=== PATIENT | female | born 1980 | race Two or more races ===

== ENCOUNTER 2024-10-21 11:03 | Outpatient (RCR) | payer MEDICAID, SELFPAY ==
--- NOTE | 2024-10-21 11:19 | PT.OIERPT ---
PT OP Initial Eval Patient Information Outpatient Physical Therapy Treatment Date: 10/21/24 Visit Reasons: RIGHT WRIST PAIN Medical Diagnosis: [id number] M25.531 Treatment Dx #1: R wrist pain Start of Care: 10/21/24 Date of Onset: 2 months ago Smoking Status Smoking Status: Never smoker Initial Assessment Subjective: Pt is 44 yr old macanese speaking female who reports R wrist pain x2 months. She drops things like cooking pots and pans and feels like she has less strength. 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 She is wearing a brace that helps with the pain. The pain runs from the wrist up the arm. She tried working with the pain but it swelled up and pain didn't allow her to work. PMH: none reported Imaging: Xrays with provider Pt goal: to get rid of the pain Objective: L: 45 lbs, R: 20 lbs thumb ArOM Flexion: full Extension: 48 deg Wrist AROM: Flexion: full with pain Extension: 45 deg Dequervains: positive TTP: high of APL tendon, 1st CMC joint and DIP Assessment: Pt presents with high tissue irritability of wrist tendons consistent with Dequervains tenosynovitis. The R thumb seems to have the extensor tendon that moves when she flexes and extends it that causes pain, unclear what that is and may benefit from consultation with hand surgeon about that. Pt may benefit from skilled therapy to meet goals and has fair rehab potential. 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 ind with HEP 2. Improved R hand family specialist strength to at least 30 lbs 3. Decreased TTP of APL and EPB tendons from high to min 4. Pt will carry pots and pans without dropping in order to cook for 20 mins Treatment Plan 1. Manual therapy ? 2. Therex ? 3. Modalities as indicated, moist heat, ice, estim ? Frequency and Duration: 1-2x a week for 8 sessions plus evaluation Certification Dates: 10/21/24 to 01/19/25 Procedure Charges OP PT Eval Mod Complex 30 minutes: Yes
== END 2024-10-25 23:59 | disposition home or self-care (01) ==
LOC: CPTX 11:03
PROVIDERS: PCP Family Medicine; Referring Provider Family Medicine; Visit Provider Family Medicine
DX: M25.531 Pain in right wrist (principal); S66.911D Strain of unspecified muscle, fascia and tendon at wrist and hand level, right hand, subsequent encounter; X58.XXXD Exposure to other specified factors, subsequent encounter
CPT/HCPCS: 97162

== ENCOUNTER 2024-11-10 15:30 | Outpatient (RCR) | payer MEDICAID, SELFPAY ==
--- NOTE | 2024-10-28 14:08 | PT.ODAYNRPT ---
PT Outpatient Daily Note OP Daily Note Outpatient Physical Therapy Treatment Date: 10/28/24 Visit Reasons: right wrist pain Subjective: Pt reports pain of carpal tunnel and thenar eminence Objective: See F/S for therex MT: STM thumb region x7' Assessment: Moderate TTP of R APL tendon and thenar eminence with manual therapy Plan: Continue per POC Length of Time (minutes) of Treatment: 30 Minutes Procedure Charges Therapeutic Exercise 30 minutes: Yes
--- NOTE | 2024-11-03 18:00 | PT.ODAYNRPT ---
PT Outpatient Daily Note OP Daily Note Outpatient Physical Therapy Treatment Date: 11/03/24 Visit Reasons: right wrist pain Subjective: Pt reports pain of carpal tunnel and thenar eminence Objective: See F/S for therex MT: STM thumb region x7' Assessment: Moderate TTP of R APL tendon and thenar eminence with manual therapy Plan: Continue per POC Length of Time (minutes) of Treatment: 30 Minutes Procedure Charges Therapeutic Exercise 30 minutes: Yes
--- NOTE | 2024-11-10 16:15 | PT.ODAYNRPT ---
PT Outpatient Daily Note OP Daily Note Outpatient Physical Therapy Treatment Date: 11/10/24 Visit Reasons: right wrist pain Subjective: Pt reports pain of carpal tunnel and thenar eminence Objective: See F/S for therex MT: STM thumb region x7' Assessment: Moderate TTP of R APL tendon and thenar eminence with manual therapy Plan: Continue per POC Length of Time (minutes) of Treatment: 30 Minutes Procedure Charges Therapeutic Exercise 30 minutes: Yes
== END 2024-11-24 23:59 | disposition home or self-care (01) ==
LOC: CPTX 15:30
PROVIDERS: PCP Family Medicine; Referring Provider Family Medicine; Visit Provider Family Medicine
DX: M25.531 Pain in right wrist (principal); S66.911D Strain of unspecified muscle, fascia and tendon at wrist and hand level, right hand, subsequent encounter; X58.XXXD Exposure to other specified factors, subsequent encounter
CPT/HCPCS: 97110

== ENCOUNTER 2024-12-13 15:30 | Outpatient (RCR) | payer MEDICAID, SELFPAY ==
--- NOTE | 2024-12-01 15:56 | PT.ODAYNRPT ---
PT Outpatient Daily Note OP Daily Note Outpatient Physical Therapy Treatment Date: 12/01/24 Visit Reasons: Rt wrist pain Subjective: Pt reports pain and points to (carpal tunnel and thenar eminence) worse after carrying a 6 month old yesterday Objective: See F/S for therex MT: STM APL EPB tendons x7' Assessment: Moderate TTP of R APL tendon and thenar eminence with manual therapy consistent with Dequervain's. Plan: Continue per POC Length of Time (minutes) of Treatment: 30 Minutes Procedure Charges Therapeutic Exercise 30 minutes: Yes
--- NOTE | 2024-12-08 16:08 | PT.ODAYNRPT ---
PT Outpatient Daily Note OP Daily Note Outpatient Physical Therapy Treatment Date: 12/08/24 Visit Reasons: Rt wrist pain Subjective: Pt reports continued pain and points to (carpal tunnel and thenar eminence) Objective: See F/S for therex MT: STM APL EPB tendons x7' Assessment: Moderate TTP of R APL tendon and thenar eminence with manual therapy consistent with Dequervain's. Plan: Continue per POC Length of Time (minutes) of Treatment: 30 Minutes Procedure Charges Therapeutic Exercise 30 minutes: Yes
--- NOTE | 2024-12-13 17:44 | PT.ODAYNRPT ---
PT Outpatient Daily Note OP Daily Note Outpatient Physical Therapy Treatment Date: 12/13/24 Visit Reasons: Rt wrist pain Subjective: Pt reports continued pain and points to (carpal tunnel and thenar eminence) Objective: See F/S for therex MT: STM APL EPB tendons x7' Assessment: Moderate TTP of R APL tendon and thenar eminence with manual therapy consistent with Dequervain's. Plan: Continue per POC Length of Time (minutes) of Treatment: 30 Minutes Procedure Charges Therapeutic Exercise 30 minutes: Yes
== END 2024-12-25 23:59 | disposition home or self-care (01) ==
LOC: CPTX 15:30
PROVIDERS: PCP Family Medicine; Referring Provider Family Medicine; Visit Provider Family Medicine
DX: M25.531 Pain in right wrist (principal); S66.911D Strain of unspecified muscle, fascia and tendon at wrist and hand level, right hand, subsequent encounter; X58.XXXD Exposure to other specified factors, subsequent encounter
CPT/HCPCS: 97110

== ENCOUNTER 2025-01-04 16:00 | Outpatient (RCR) | payer MEDICAID, SELFPAY ==
--- NOTE | 2024-12-27 18:12 | PT.ODAYNRPT ---
PT Outpatient Daily Note OP Daily Note Outpatient Physical Therapy Treatment Date: 12/27/24 Visit Reasons: RT wrist pain Subjective: Pt reports continued pain and points to (carpal tunnel and thenar eminence) Objective: See F/S for therex Assessment: Slow progress with goals due to moderate TTP of R APL tendon and thenar eminence with manual therapy consistent with Dequervain's. Plan: Reassess Length of Time (minutes) of Treatment: 30 Minutes Procedure Charges Therapeutic Exercise 30 minutes: Yes
--- NOTE | 2025-01-04 16:34 | PT.ODS1RPT ---
PT OP Progress/Discharge Note Date of Service: 01/04/25 Progress Note/DC Note Progress Note/Discharge Note: DC Note Patient Information Visit Reasons: RT wrist pain Service Continue Service or Discharge: Discharge Discharge Date: 01/04/25 Status Subjective: Pt says the pain feels about the same as before therapy. She is cooking and carrying pots and pans without dropping Objective: Marek client liaison strength: R: 35 lbs, L: 55 lbs Wrist AROM: Flexion: full Extension: 50 deg TTP: min of APL and EPB tendons Assessment: Pt attended 8/8 Rx sessions with good progress to meet all therapy goals despite continued subjective pain. Pt has improved client liaison strength of R hand to 35 lbs which meets that goal and has decreased TTP of thumb tendons from high to min to meet that goal. Pt can carry pots and pans without dropping them and can cook for 20 mins to meet that goal. Plan: D/C with HEP Procedure Charges Therapeutic Exercise 30 minutes: Yes
== END 2025-01-24 23:59 | disposition home or self-care (01) ==
LOC: CPTX 16:00
PROVIDERS: PCP Family Medicine; Referring Provider Family Medicine; Visit Provider Family Medicine
DX: M25.531 Pain in right wrist (principal); S66.911D Strain of unspecified muscle, fascia and tendon at wrist and hand level, right hand, subsequent encounter; X58.XXXD Exposure to other specified factors, subsequent encounter
CPT/HCPCS: 97110